=== PATIENT | male | born 1955 | race Caucasian/White ===

== ENCOUNTER → 2023-07-11 10:03 | Outpatient (REF) | payer MEDICARE, SELFPAY | LOC: RAD 10:03 | PROVIDERS: ATTENDING PHYSICIAN Internal Medicine Cardiovascular Disease; FAMILY PHYSICIAN Family Medicine | DX: I10 Essential (primary) hypertension (principal); I49.1 Atrial premature depolarization; R06.02 Shortness of breath | CPT/HCPCS: 75574; Q9967 ==

== ENCOUNTER → 2023-08-02 13:11 | Outpatient (REF) | payer MEDICARE, SELFPAY ==
[2023-08-02 13:56] LABS: % Eosinophils 1.8 % (0-6); % Immature Granulocytes 0.3 % (0-0.5); % Lymphocytes 22.5 % (20.5-51.1); % Monocytes 7.5 % (1.7-9.3); % Neutrophils 66.9 % (42.2-75.2); Absolute Basophils 0.1 10^3/uL (0-0.2); Absolute Eosinophils 0.1 10^3/uL (0-0.7); Absolute Lymphocytes 1.7 10^3/uL (1.2-3.4); Absolute Monocytes 0.6 10^3/uL (0.1-0.6); Absolute Neutrophils 5.2 10^3/uL (1.4-6.5); Hematocrit 41.9 % (39.0-52.0); Hemoglobin 14.3 g/dL (13.0-18.0); Mean Corp Hgb Conc. 34.1 g/dL (33.0-37.0); Mean Corpuscular Hgb 28.4 pg (27.0-31.0); Mean Corpuscular Volume 83.3 fL (80.0-94.0); Nucleated Red Blood Cells % 0 % (-); Platelet Count 244 10^3/uL (130-400); Red Blood Cell Count 5.03 10^6/uL (4.70-6.10); Red Cell Dist. Width 14.4 % (11.5-14.5); White Blood Cell Count 7.7 10^3/uL (4.8-10.8)
[2023-08-02 14:12] LABS: ALT (SGPT) 23 U/L (0-50); AST (SGOT) 26 U/L (17-59); Albumin 4.1 g/dl (3.5-5.0); Alkaline Phosphatase 74 U/L (38-126); Blood Urea Nitrogen 21 mg/dl (9-20); Calcium 9.3 mg/dl (8.4-10.2); Carbon Dioxide 28 mmol/L (22-30); Chloride 104 mmol/L (98-107); Glucose 135 mg/dl (70-99); Potassium 4.1 mmol/L (3.5-5.1); Sodium 138 mmol/L (135-145); Total Bilirubin 0.6 mg/dl (0.2-1.3); Total Protein 6.9 g/dl (6.3-8.2); eGFR > 60.00
== END ==
LOC: SDSPAT 13:11
PROVIDERS: ATTENDING PHYSICIAN Internal Medicine Cardiovascular Disease; FAMILY PHYSICIAN Family Medicine
DX: Z01.818 Encounter for other preprocedural examination (principal); R94.39 Abnormal result of other cardiovascular function study; R06.02 Shortness of breath
CPT/HCPCS: 36415; 80053; 85025; 93005

== ENCOUNTER 2023-08-04 06:59 | Day surgery (SDC) | payer MEDICARE, SELFPAY ==
[2023-08-02 13:33] VITALS: BMI 28.7
--- NOTE | 2023-08-02 14:10 | HPS.HSE ---
Family Physician
-
Family Physician: Marina Murphy
Chief Complaint
-
Abnormal coronary CTA. Shortness of breath.
History of Present Illness
The patient is a pleasant 67 year old male presenting today for shortness of breath. He notes that his breathing has been impacted since his COVID 19 diagnosis in October 2020. Ever since then, he states that his breathing is notably different
with high intensity exercises. He says, for example, that when he swims he can only take two strokes before needing to catch his breath. Previously, before COVID, he could take 4 strokes before needing a breath. He underwent an exercise stress test
in late May 2023 which showed no changes diagnostic for ischemia. A coronary CTA on 07/11/2023, however, demonstrated a 50-70% diameter stenosis in the proximal segment of the LAD and a 50% diameter stenosis in the mid segment of the RCA. His
total coronary artery calcium agatston score was 322.82. It is recommended he undergo a left cardiac catheterization at this time for further evaluation of his ongoing shortness of breath. He denies any current complaints today such as chest pain,
shortness of breath at rest, nausea, vomiting, diarrhea, lightheadedness, dizziness, cough, sore throat, or fever.
Medical History
Past Medical History
Past Medical History: Reports Other
Additional Past Medical History:
1. Abnormal coronary CTA.
2. Shortness of breath.
3. Hypertension.
4. Dyslipidemia.
5. Frequent PACs/PVCs with palpitations.
6. Mild mitral regurgitation.
7. Mild tricuspid regurgitation.
8. Mild pulmonary hypertension.
9. Syncope 2016.
10. GERD.
11. Colon polyps.
12. Vertigo.
13. Multilevel degenerative disc disease.
14. Chronic post-nasal drip.
15. Anxiety.
16. COVID 19 10/2020.
Past Surgical History: Reports Other
Additional Past Surgical History:
1. L3-L4, L4-L5 laminectomy.
2. Right inguinal hernia repair.
3. Left inguinal hernia repair.
4. [place] tooth extraction.
5. Multiple epidural steroid injections.
6. Colonoscopy x2.
7. Endoscopy.
Social History
Tobacco: Non-smoker
Alcohol: Occasional
Personal:
Living: Other (He lives with his in a 2 story home with a basement. )
Family History
Family History: Not pertinent
Allergies / Home Medications
Allergy/Medication List:
Home medications:
1. Amlodipine 10 mg p.o. daily.
2. Aspirin 81 mg p.o. daily.
3. Calcium carbonate 750 mg p.o. daily as needed.
4. Fluvoxamine 100 mg p.o. daily.
5. Fluvoxamine 50 mg p.o. at bedtime.
6. Lamotrigine 25 mg p.o. daily.
7. Lisinopril 40 mg p.o. daily.
8. Montelukast 10 mg p.o. daily.
9. Multivitamin 1 tablet p.o. daily.
10. Omeprazole 40 mg p.o. daily.
11. Pravastatin 10 mg p.o. at bedtime.
12. Trazodone 50 mg p.o. at bedtime.
Allergies: Seasonal. No known drug allergies.
Review of Systems
-
A 12 point ROS was completed and negative except as noted: Yes
Physical Exam
Vital Signs
Blood pressure 138/76. Heart rate 71. Respirations 18. Pulse ox 97% on room air.
Height 5 feet, 7 inches. Weight 82.9 kg. BMI 28.6.
Physical Exam
General: Well Developed, Well Nourished and No Apparent Distress
HEENT: NormoCephalic, Moist mucous membranes, Atraumatic and PERRLA
Respiratory: Clear
Cardiac: Regular Rhythm
GI: Soft, Non Tender and Non Distended
Musculoskeletal: Normal Gait & Station
Skin: Warm and Dry
Neuro: AO x 3 and Nonfocal/grossly intact
Laboratory Results
-
DIAGNOSTIC STUDIES as of 08/02/2023: White blood cell count 7.7. Hemoglobin 14.3. Platelet count 244,000. Sodium 138. Potassium 4.1. BUN 21. Creatinine 1.0. Glucose 135. Calcium 9.3. AST 26. ALT 23. Albumin 4.1.
EKG 08/02/2023: Normal sinus rhythm. Low voltage QRS.
Coronary CTA 07/11/2023: 50-70% diameter stenoses in the proximal segment of the LAD. 50% diameter stenosis in the mid segment of the RCA. No stenosis in the left main coronary artery. No stenosis in the left circumflex coronary artery. TOTAL
CORONARY ARTERY CALCIUM AGATSTON SCORE:�322.82. ESC[employer] database for a 67-year-old white male: 73%. Mild cardiomegaly.
Impression/Plan
-
IMPRESSION/PLAN:
1. Abnormal coronary CTA and shortness of breath: The patient is in need of a left cardiac catheterization with Dr. Dileep Flaherty on 08/04/2023. The benefits and risks of the procedure have been explained to the patient. The patient understands
these risks and wishes to proceed. He is aware to continue his Aspirin up to and including the day of his cardiac catheterization.
[2023-08-04] VITALS (13 sets, daily range): BP systolic 120–156; BP diastolic 63–87
[2023-08-04] MEDS: NSS 249 ML IV (07:43)
[2023-08-04] MEDS: LOW STRENGTH ASPIRIN 81 MG PO (07:44)
[2023-08-04] MEDS: NSS 1000 IV (09:42)
--- NOTE | 2023-08-04 09:45 | ITS.CL.CATH ---
[employer] - Catheterization
Cardiac Catheterization
Procedure Report:
CARDIAC CATHETERIZATION REPORT
Date of Procedure: 08/04/2023
Referring: Jayden Roth DO
Indication: Shortness of breath with abnormal coronary calcium score followed by abnormal coronary CTA with suggestion of 70% LAD stenosis
HEMODYNAMIC DATA
AO: 149/69
LV: 149/14
LEFT VENTRICULOGRAPHY: Normal ventricular wall motion with EF 58%
CORONARY ANGIOGRAPHY
Dominance: Right
Left Main: Normal
LAD: Minimal calcification with 20% mid LAD stenosis
Circumflex: Normal
RCA: Normal
Closure Device: None-the procedure was performed via the right radial artery. The Joey's test was normal prior to the procedure.
Radiation (mGy): 158
DAP (cm2.Gy): 12.1
Fluoroscopy time: 1.2 minutes
CONCLUSIONS
1: Systemic hypertension
2: Normal left ventricular function with EF 58%
3. Very mild single-vessel CAD with 20% mid LAD stenosis
Copy to: Jayden Roth DO, Marina Murphy MD
Dileep Flaherty MD, [facility], [facility]
== END 2023-08-04 12:35 | disposition home or self-care (01) ==
LOC: CATH 06:59
PROVIDERS: ATTENDING PHYSICIAN Internal Medicine Cardiovascular Disease; FAMILY PHYSICIAN Family Medicine; OTHER PHYSICIAN Internal Medicine Cardiovascular Disease
DX: I25.10 Atherosclerotic heart disease of native coronary artery without angina pectoris (principal); I25.84 Coronary atherosclerosis due to calcified coronary lesion; I10 Essential (primary) hypertension; R06.02 Shortness of breath; E78.5 Hyperlipidemia, unspecified; I49.3 Ventricular premature depolarization; I49.1 Atrial premature depolarization; I08.1 Rheumatic disorders of both mitral and tricuspid valves; I08.8 Other rheumatic multiple valve diseases; Z86.010 Personal history of colon polyps; R09.82 Postnasal drip; F41.9 Anxiety disorder, unspecified; Z86.16 Personal history of COVID-19; K21.9 Gastro-esophageal reflux disease without esophagitis; R55 Syncope and collapse; Z79.82 Long term (current) use of aspirin
CPT/HCPCS: 93458; C1894; Q9967